=== PATIENT | female | born 1995 | race Caucasian/White ===

== ENCOUNTER 2017-10-28 03:21 | Emergency (ER) | payer OTHER ==
[~2017-10-28] VITALS: Ht 157.4 cm; Wt 55.3 kg
[2017-10-28] MEDS ORDERED: AMOXICILLIN500 M2 PO (03:31)
[2017-10-28] MEDS ORDERED: HYDROCODONE-AC1 EAC1 PO (03:31)
[2017-10-28] MEDS ORDERED: CITALOPRAM HYDR20 MG PO (03:31)
[2017-10-28] MEDS ORDERED: METHYLPRED-DP4 MG PO (03:31)
[2017-10-28 04:30] LABS: BUN 16 mg/dl (7-24); CHLORIDE 101 mmol/L (98-107); CREATININE 0.88 mg/dL (0.55-1.02); POTASSIUM 3.9 mmol/L (3.5-5.1); SODIUM 136 mmol/L (136-145)
[2017-10-28] MEDS ORDERED: PHENERGAN25 M3 PO (06:26)
[2017-10-28 06:38] LABS: BILIRUBIN NEGATIVE (NEGATIVE); BLOOD NEGATIVE (NEGATIVE); CLARITY SL CLOUDY (CLEAR); COLOR YELLOW (YELLOW); GLUCOSE NEGATIVE (NEGATIVE); KETONE NEGATIVE (NEGATIVE); LEUKO ESTERASE 1+ (NEGATIVE); NITRITE NEGATIVE (NEGATIVE); PH 8.5 (5.0-9.0); SPECIFIC GRAVITY 1.015 (1.005-1.030)
[2017-10-28 06:44] LABS: BACTERIA 1+; EPITHELIAL CELLS 16-20; MUCOUS 2+; WBC 21-30 wbc/hpf (0-5)
== END 2017-10-28 06:40 | disposition home or self-care (01) ==
LOC: ED 03:21
PROVIDERS: Emergency Medicine
DX: E86.0 Dehydration (principal); Z91.013 Allergy to seafood; Z79.2 Long term (current) use of antibiotics